=== PATIENT | male | born 2000 | race African-American/Black ===

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

== ENCOUNTER 2024-04-08 11:41 | Emergency (ER) | payer MEDICAID, OTHER ==
[~2024-04-08] VITALS: Ht 177.8 cm; Wt 81.0 kg
[2024-04-08 11:53] VITALS: O2SAT 100
[2024-04-08] MEDS: LIDOCAINE HCL/EPINEPHRINE 1%-EPI 1:100,000 20 ML VIAL INFIL NR (12:30)
[2024-04-08] MEDS: LIDOCAINE HCL/EPINEPHRINE 1%-EPI 1:100,000 50 ML VIAL INFIL ONE (13:00)
[2024-04-08] MEDS ORDERED: BO1 TP (13:30)
[2024-04-08] MEDS: TETANUS, DIPHTHERIA, PERTUSSIS VAC/PF 0.5ML (>10YR OLD) IM ONE (13:52)
[2024-04-08 14:06] VITALS: BP 135/80; PULSE 79; RESP 18; TEMP 98.2
== END 2024-04-08 13:50 | disposition home or self-care (01) ==
LOC: ER 12:14
DX: S01.511A Laceration without foreign body of lip, initial encounter (principal); W18.39XA Other fall on same level, initial encounter; Y93.89 Activity, other specified; Y92.89 Other specified places as the place of occurrence of the external cause; Y99.8 Other external cause status
CPT/HCPCS: 90715; 40650; 90471; 99284; J3490; Z7610 ×2